=== PATIENT | male | born 1935 | race Caucasian/White ===

== ENCOUNTER 2018-08-27 05:26 | Observation (INO) | payer MEDICARE ==
[2018-08-25 12:55] VITALS: BP 143/59
[2018-08-25 13:36] LABS: BASOPHILS % (AUTO) 0.7 % (0.0-5.0); EOSINOPHILS % (AUTO) 5.2 % (0.0-8.0); HEMATOCRIT 39.9 % (42-54); LYMPHOCYTES % (AUTO) 13.6 % (21.0-51.0); MEAN CORPUSCULAR HEMOGLOBIN 34.3 pg (27.0-33.0); MEAN CORPUSCULAR VOLUME 100.8 fL (79-99); MONOCYTES % (AUTO) 9.4 % (3.0-13.0); NEUTROPHILS % (AUTO) 71.1 % (40.0-77.0); PLATELET COUNT (AUTO) 220 K/uL (130-400); RED BLOOD CELL COUNT(AUTO) 3.95 MIL/uL (4.50-6.20); RED CELL DISTRIBUTION WIDTH 13.1 % (11.0-15.5); WHITE BLOOD COUNT (AUTO) 8.9 K/uL (4.8-10.8)
[2018-08-25 13:45] LABS: CREATININE 1.2 mg/dL (0.5-1.5); POTASSIUM 4.3 mmol/L (3.5-5.1)
[2018-08-25 13:48] LABS: INR 0.94 (0.85-1.15); PARTIAL THROMBOPLASTIN TIME 28.2 SEC (26.3-35.5); PROTHROMBIN TIME 9.9 SEC (9.6-11.6)
[~2018-08-27] VITALS: Ht 180.3 cm; Wt 79.2 kg
[2018-08-27] VITALS (9 sets, daily range): BP systolic 117–149; BP diastolic 55–78
[~2018-08-27 05:26] MED LIST: AEC81 PO; AMLO10TA7 PO; ASCO10007 PO; CLOP75TA14 PO; CRAN400C PO; GLUC100019 PO; LISI-613 PO; MULT1TAB70 PO; OMEG-138 PO; SIMV40TA5 PO; VITA400C70 PO; [UNRECOGNIZED DRUG - OTHER] PO
[2018-08-27] MEDS ORDERED: SODIUM CHLORIDE 0.9% 1000ML 1,000 ML IV SCH (06:00)
[2018-08-27] MEDS ORDERED: LIDOCAINE HCL 1% MDV 50ML VIAL ONE (10:55)
[2018-08-27] MEDS ORDERED: BUPIVACAINE/PF 0.25% 10ML VIAL IJ ONE (10:55)
[2018-08-27] MEDS ORDERED: CEFAZOLIN SODIUM 1 GM VIAL ONE (10:55)
[2018-08-27] MEDS ORDERED: MIDAZOLAM HCL 1 MG/ML 2ML VIAL ONE ×2 (11:11→11:31)
[2018-08-27] MEDS ORDERED: MEPERIDINE-PF 25 MG/ML SYG ONE ×2 (11:12→11:31)
[2018-08-27] MEDS ORDERED: TEMAZEPAM 30 MG CAP PO PRN (12:15)
[2018-08-27] MEDS ORDERED: ACETAMINOPHEN-CODEINE 300/30MG TAB PO PRN ×2 (12:15)
[2018-08-27] MEDS ORDERED: ACETAMINOPHEN 325 MG TAB PO PRN (12:15)
[2018-08-27] MEDS ORDERED: ONDANSETRON HCL 4 MG/2 ML VIAL IV PRN (12:15)
--- NOTE | 2018-08-27 12:25 | NUR ---
RECEIVE PT RECEIVED FROM [employer] VIA BED, AWAKE ALERT ORIENTED X3, STATES HE IS SLEEPY. NO OTHER COMPLAINTS MADE. GAUZE/OPSITE DRESSING TO LEFT UPPER CHEST DRY AND INTACT, NO OOZING NO HEMATOMA NOTED. DENIES PAIN. LEFT ARM IN SLING. PT INSTRUCTED TO KEEP LEFT ARM IN SLING, AND NOT TO ELEVATE LEFT ARM ABOVE SHOULDER LEVEL X6 WEEKS. VERBALIZED UNDERSTANDING.
--- NOTE | 2018-08-27 13:35 | NUR ---
REPORT REPORT GIVEN TO FABRIZIO GANNON. NO CONCERNS VOICED IN REPORT.
[2018-08-27] MEDS ORDERED: SIMVASTATIN 20 MG TABLET PO SCH (21:00)
[2018-08-27] MEDS ORDERED: AMLODIPINE BESYLATE 5 MG TAB PO SCH (21:00)
--- NOTE | 2018-08-27 21:25 | NUR ---
REPORT FROM FABRIZIO ROTHMAN. PATIENT TRANSFERRED TO ROOM 222.
[2018-08-28 03:49] VITALS: BP 105/58
[2018-08-28 07:24] VITALS: BP 121/55
[2018-08-28] MEDS ORDERED: ASPIRIN 81 MG EC TAB PO SCH (09:00)
[2018-08-28] MEDS ORDERED: VITAMIN E 400 UNIT CAPSULE PO SCH (09:00)
[2018-08-28] MEDS ORDERED: FISH OIL 1000 MG/CAP PO SCH (09:00)
[2018-08-28] MEDS ORDERED: CLOPIDOGREL BISULFATE 75 MG TAB PO SCH (09:00)
[2018-08-28] MEDS ORDERED: ASCORBIC ACID 500 MG TAB PO SCH (09:00)
[2018-08-28] MEDS ORDERED: LISINOPRIL 20 MG TABLET PO SCH (09:00)
[2018-08-28 11:08] VITALS: BP 115/51
--- NOTE | 2018-08-28 13:00 | NUR ---
DISCHARGE INSTRUCTIONS/INFORMATION GIVEN TO PATIENT. TEACH BACK METHOD USED TO EDUCATE PATIENT ON WOUND CARE, COMPLIANCE WITH MEDICATIONS, S/S TO MONITOR, ACTIVITY RESTRICTIONS, WHEN TO CALL MD, DIET, AND MEDICATONS. TELE PACK REMOVED AND RETURNED. PIV REMOVED. TIP WAS INTACT. ALL BELONGINGS WERE PACKED.
== END 2018-08-28 12:55 | disposition home or self-care (01) ==
LOC: DAH 05:26 → DAHIP 05:27 → 2CH 13:40 → 2DH 21:33
PROVIDERS: ADMIT Internal Medicine; ATTEND Internal Medicine
DX: I45.9 Conduction disorder, unspecified (principal); R00.1 Bradycardia, unspecified; I11.0 Hypertensive heart disease with heart failure; I50.32 Chronic diastolic (congestive) heart failure; E78.5 Hyperlipidemia, unspecified; I25.10 Atherosclerotic heart disease of native coronary artery without angina pectoris; Z86.73 Personal history of transient ischemic attack (TIA), and cerebral infarction without residual deficits; Z95.0 Presence of cardiac pacemaker; Z82.49 Family history of ischemic heart disease and other diseases of the circulatory system; Z79.899 Other long term (current) drug therapy; Z79.01 Long term (current) use of anticoagulants
CPT/HCPCS: 33208; 36415; 71046; 80048; 85025; 85610; 85730; 93005; A4606; C1785; C1898 ×2; G0378 ×31; J0690; J2175 ×2; J2250 ×2; J3490 ×2; 99156; 99157